=== PATIENT | female | born 1980 | race Caucasian/White ===

== ENCOUNTER 2017-07-29 09:27 | Emergency (ER) | payer OTHER ==
[2017-07-29 09:40] VITALS: BP 138/69; PULSE 78; RESP 18; TEMP 98.2; O2SAT 95
--- NOTE | 2017-07-29 09:48 | EDPHY ---
H & P Stated Complaint: cat bite to right hand Time Seen by Provider: 07/29/17 09:32 HPI/ROS: CHIEF COMPLAINT: Cap by right hand HISTORY OF PRESENT ILLNESS: This is a 37-year-old female with a history of CADACIL. She presents with a cat bite injury to right hand that occurred about 15 hr ago. She works as a copier technician, was placing an IV in a cat when the cat bit her. She states that cat's teeth punctured the back of her right hand, just below the knuckle of the index finger. She pulled her hand away, causing a scratch injury between the puncture wounds. She also notes a small puncture wound on the webspace of the palm of her right hand. She has taken ibuprofen. This morning she noted some swelling. She has not had fever, redness, streaking, or difficulty moving her fingers. She Is required to seek medical attention by her employer. REVIEW OF SYSTEMS: A ten point review of systems was performed and is negative with the exception of the items mentioned in the HPI. Past medical history: CADACIL Social history: She works as a copier technician. She is not . She denies tobacco products. General Appearance: Alert. Vital signs reviewed. Blood pressure 138/69 at triage. A focused examination was performed. Skin: Warm and dry, no rashes on exposed skin, normal color. There is a 1 cm linear scratch on the dorsal aspect of her right hand, proximal to the MCP joint of the index finger. There is a small puncture wound on the webspace of her right hand. No warmth or erythema. There is mild swelling of the dorsum of the right hand. Pulses: 2+ radial pulse on the right. Neurological: Alert and oriented. Moving all four extremities easily and equally. 5/5 strength with testing of the right elbow, wrist, and all digits of the right hand. She has full flexion and extension of her digits. Sensation is intact, including two-point sensation over the thumb, index finger , and long finger of the right hand. Psychiatric: Normal affect. - Personal History LMP (Females 10-55): Post Menopausal Current Tetanus/Diphtheria Vaccine: Yes Current Tetanus Diphtheria and Acellular Pertussis (TDAP): Yes - Medical/Surgical History Hx Asthma: No Hx Chronic Respiratory Disease: No Hx Diabetes: No Hx Cardiac Disease: No Hx Renal Disease: No Hx Cirrhosis: No Hx Alcoholism: No Hx HIV/AIDS: No Hx Splenectomy or Spleen Trauma: No Other PMH: cadasil disease, migraines, tubal ligation - Social History Smoking Status: Never smoked Constitutional: Initial Vital Signs Temperature (C) 36.8 C 07/29/17 09:37 Heart Rate 78 07/29/17 09:37 Respiratory Rate 18 07/29/17 09:37 Blood Pressure 138/69 H 07/29/17 09:37 O2 Sat (%) 95 07/29/17 09:37 O2 Delivery Mode Room Air Allergies/Adverse Reactions: No Known Allergies Allergy (Verified 07/29/17 09:36) Home Medications: Medication Instructions Recorded [place] 09/06/13 Vit A/Beta-Carot/D2/E/Selenium 09/06/13 [Vitamins A-D-E Tablet] Verapamil 12/24/14 Zoloft 100mg (RX) 12/24/14 Amoxicillin/Clavulanate Pot 875 mg PO BID #14 tab 07/29/17 [Augmentin 875 MG TAB (*)] ED Images - Extremities Hands Back Left/Right: 1 - linear scratch, one cm Medical Decision Making ED Course/Re-evaluation: Cat bite that occurred about 15 hr ago at her work. No evidence of infection at this time. She is being started on Augmentin. Danger signs are reviewed with her. She is advised to ice and elevate her hand. She will continue with ibuprofen for pain and swelling. Differential Diagnosis: I considered a differential diagnosis that includes but is not limited to puncture wound, laceration/abrasion, lymphangitis, abscess, and cellulitis Departure - Departure Disposition: Home, Routine, Self-Care Clinical Impression: Cat bite of right hand Qualifiers: Encounter type: initial encounter Qualified Code(s): S61.451A - Open bite of right hand, initial encounter Condition: Good Instructions: Animal Bite (ED) Additional Instructions: Watch carefully for signs of infection--increasing pain, worsening swelling, redness or streaking, inability to bend or straighten fingers. If you see any signs of infection you should be re-evaluated immediately. take the antibiotics as prescribed. Follow up with occupational health or with a workman's Comp provider as per your employer. I am also providing the name of the on-call primary care physician, should you need one. Referrals: Sunshine Armenta MD [Medical Doctor] - As per Instructions Stand Alone Forms: Work Comp Follow Up Prescriptions: Amoxicillin/Clavulanate Pot [Augmentin 875 MG TAB (*)] 875 mg PO BID #14 tab
== END 2017-07-29 09:57 | disposition home or self-care (01) ==
LOC: CED 09:27
DX: S61.451A Open bite of right hand, initial encounter (principal); W55.01XA Bitten by cat, initial encounter; Y92.89 Other specified places as the place of occurrence of the external cause; Y99.0 Civilian activity done for income or pay; Y93.89 Activity, other specified